=== PATIENT | male | born 1955 | race African-American/Black ===

== ENCOUNTER 2019-04-15 23:16 | Emergency (ER) | payer MEDICARE, MEDICAID ==
[~2019-04-15] VITALS: Ht 177.8 cm; Wt 82.0 kg
[2019-04-16] MEDS ORDERED: HYDROCODONE/ACETAMINOPHEN 5/325MG TABLET PO ONE (00:30)
[2019-04-16] MEDS ORDERED: KETOROLAC 60MG/2ML VIAL IM ONE (00:30)
[2019-04-16] MEDS ORDERED: SIMV20TA6 PO (01:04)
[2019-04-16] MEDS ORDERED: BENA20TA10 PO (01:04)
[2019-04-16] MEDS ORDERED: METF-415 PO (01:04)
[2019-04-16 02:24] VITALS: BP 163/81
== END 2019-04-16 02:26 | disposition home or self-care (01) ==
LOC: ER 23:16
DX: M25.561 Pain in right knee (principal); E11.9 Type 2 diabetes mellitus without complications; I10 Essential (primary) hypertension; Z96.649 Presence of unspecified artificial hip joint; Z98.890 Other specified postprocedural states; Z79.899 Other long term (current) drug therapy
CPT/HCPCS: 96372; 99283; J1885

== ENCOUNTER 2020-05-03 00:58 | Emergency (ER) | payer MEDICARE, MEDICAID ==
[~2020-05-03] VITALS: Ht 172.7 cm; Wt 82.0 kg
[~2020-05-03 00:58] MED LIST: BENA20TA10 PO; METF-415 PO; SIMV-43 PO
[2020-05-03 01:01] VITALS: BP 138/65
[2020-05-03] MEDS ORDERED: BACITRACIN ZINC OINT UDPKT TOP ONE (01:15)
[2020-05-03] MEDS ORDERED: TETANUS, DIPHTHERIA, PERTUSSIS VAC/PF 0.5ML (>7YR OLD) IM ONE (01:15)
[2020-05-03] MEDS ORDERED: LIDOCAINE 1%/EPI 1:100,000 10 ML VIAL IJ ONE (01:15)
[2020-05-03] MEDS ORDERED: LIDOCAINE HCL/EPINEPHRINE 1%-EPI 1:100,000 20 ML VIAL INFIL NR (01:30)
== END 2020-05-03 02:46 | disposition home or self-care (01) ==
LOC: ER 00:58
DX: S51.811A Laceration without foreign body of right forearm, initial encounter (principal); W25.XXXA Contact with sharp glass, initial encounter; Y93.89 Activity, other specified; Y92.89 Other specified places as the place of occurrence of the external cause; Y99.8 Other external cause status
CPT/HCPCS: 90471; 90715; 99283; J3490

== ENCOUNTER 2020-12-23 12:37 | Emergency (ER) | payer MEDICARE, MEDICAID ==
[~2020-12-23] VITALS: Ht 185.4 cm; Wt 91.0 kg
[2020-12-23 12:50] VITALS: BP 154/75
[2020-12-23] MEDS ORDERED: SODIUM CHLORIDE 0.9% 1,000 ML IV ONE (13:00)
== END 2020-12-23 13:45 | disposition left against medical advice (07) ==
LOC: ER 12:37
DX: T51.0X1A Toxic effect of ethanol, accidental (unintentional), initial encounter (principal); G92 Toxic encephalopathy; E11.9 Type 2 diabetes mellitus without complications; I10 Essential (primary) hypertension; Z79.84 Long term (current) use of oral hypoglycemic drugs; Z53.29 Procedure and treatment not carried out because of patient's decision for other reasons; Y92.488 Other paved roadways as the place of occurrence of the external cause
CPT/HCPCS: 93005; 99283; J7030

== ENCOUNTER 2021-01-15 10:17 | Emergency (ER) | payer MEDICARE, MEDICAID ==
[~2021-01-15] VITALS: Ht 172.7 cm; Wt 75.0 kg
[2021-01-15 10:43] VITALS: BP 121/82
[2021-01-15 10:52] LABS: BASOPHILS % 0.6 % (0.0-2.0); EOSINOPHILS % 0.6 % (0.0-5.0); HEMATOCRIT. 42.1 % (42.0-52.0); HEMOGLOBIN. 13.8 g/dL (14.0-18.0); LYMPHOCYTES % 25.9 % (20.0-50.0); MEAN CORPUSCULAR HEMOGLOBIN 28.1 pg (28.0-32.0); MEAN CORPUSCULAR VOLUME 86.1 fL (80.0-94.0); MEAN PLATELET VOLUME 7.2 fl (7.4-10.4); MONOCYTES % 5.4 % (2.0-8.0); NEUTROPHILS % 67.5 % (40.0-76.0); PLATELET 274 x1000/uL (130-400); RED BLOOD CELL COUNT 4.89 mill/uL (4.7-6.1); RED CELL DISTRIBUTION WIDTH 13.9 % (11.6-14.6)
[2021-01-15 10:56] LABS: CHLORIDE 103 mEq/L (98-107)
[2021-01-15 10:59] LABS: ETHANOL BLOOD < 10 mg/dL
== END 2021-01-15 11:33 | disposition home or self-care (01) ==
LOC: ER 10:17
DX: F16.10 Hallucinogen abuse, uncomplicated (principal); E11.9 Type 2 diabetes mellitus without complications; I10 Essential (primary) hypertension
CPT/HCPCS: 36415; 80053; 80320; 85025; 93005; 99284; G0480

== ENCOUNTER 2021-03-20 16:08 | Emergency (ER) | payer MEDICARE, MEDICAID ==
[~2021-03-20] VITALS: Ht 182.9 cm; Wt 100.0 kg
[2021-03-20] MEDS ORDERED: FLUORESCEIN SODIUM 1MG/STRIP RIGHTEYE ONE (16:15)
[2021-03-20] MEDS ORDERED: HALOPERIDOL LACTATE 5MG/ML VIAL IM ONE ×2 (16:30→17:15)
[2021-03-20] MEDS ORDERED: DIPHENHYDRAMINE 50MG/ML VIAL IV ONE (16:30)
[2021-03-20 16:40] LABS: BASOPHILS % 0.9 % (0.0-2.0); EOSINOPHILS % 0.7 % (0.0-5.0); HEMATOCRIT. 44.9 % (42.0-52.0); LYMPHOCYTES % 23.8 % (20.0-50.0); MEAN CORPUSCULAR HEMOGLOBIN 28.9 pg (28.0-32.0); MEAN CORPUSCULAR VOLUME 86.7 fL (80.0-94.0); MEAN PLATELET VOLUME 7.2 fl (7.4-10.4); MONOCYTES % 5.5 % (2.0-8.0); NEUTROPHILS % 69.1 % (40.0-76.0); PLATELET 300 x1000/uL (130-400); RED BLOOD CELL COUNT 5.18 mill/uL (4.7-6.1); RED CELL DISTRIBUTION WIDTH 13.7 % (11.6-14.6)
[2021-03-20 16:43] LABS: CHLORIDE 113 mEq/L (98-107)
[2021-03-20 16:47] LABS: ETHANOL BLOOD < 10 mg/dL
[2021-03-20] MEDS ORDERED: LORAZEPAM 2MG/ML CPJ IM ONE ×2 (17:15→19:00)
[2021-03-20 18:05] LABS: PROTHROMBIN TIME 10.6 sec (9.6-11.0)
[2021-03-20] MEDS ORDERED: CIPHCO RIGHTEYE (21:18)
[2021-03-21 01:18] VITALS: BP 165/84
== END 2021-03-21 01:39 | disposition home or self-care (01) ==
LOC: ER 16:08
DX: R41.82 Altered mental status, unspecified (principal); H10.9 Unspecified conjunctivitis; F16.10 Hallucinogen abuse, uncomplicated; I10 Essential (primary) hypertension; E11.9 Type 2 diabetes mellitus without complications
CPT/HCPCS: 36415; 70450; 80053; 80320; 85025; 85610; 96372; 96374; 99285; J1200; J1630; J2060; G0480